=== PATIENT | male | born 1960 | race Caucasian/White ===

== ENCOUNTER 2024-04-29 16:12 | Emergency (ER) | payer MEDICARE, BC, OTHER ==
[2024-04-29] MEDS ORDERED: Sodium Chloride 0.9% 10 ML Syringe FLUSH PRN (16:18)
[2024-04-29] MEDS: Aspirin 81 MG Tab.Chew PO ONE (16:30)
[2024-04-29 16:31] LABS: BASOPHILS PERCENT AUTO 0.4 % (0.0-1.0); EOSINOPHILS PERCENT AUTO 1.1 % (1.0-3.0); HEMATOCRIT 48.7 % (40.0-54.0); HEMOGLOBIN 16.7 g/dL (14.0-18.0); LYMPHOCYTES PERCENT AUTO 21.5 % (20.5-50.1); MEAN CORPUSCULAR HEMOGLOBIN 31.8 pg (27.0-34.0); MEAN CORPUSCULAR HGB CONC 34.3 g/dL (33.0-35.0); MEAN CORPUSCULAR VOLUME 92.8 fL (80-100); MONOCYTES PERCENT AUTO 7.5 % (2-8); NEUTROPHILS PERCENT AUTO 69.5 % (42.2-75.2); PLATELET COUNT,PLT 270 10^3/uL (150-450); RED BLOOD CELL COUNT 5.25 10^6/uL (4.6-6.2); WHITE BLOOD CELL COUNT,WBC 11.4 10^3/uL (5.0-10.0)
[2024-04-29 16:51] LABS: INR 0.9 (0.9-1.2); PROTHROMBIN TIME 9.7 SEC (9.0-12.0); PTT,PARTIAL THROMBOPLSTIN TIME 24.3 SEC (22.0-34.0)
[2024-04-29 16:53] LABS: B-TYPE NATRIURETIC PEPTIDE,BNP 10 pg/ml (0-100)
[2024-04-29 16:54] LABS: LACTIC ACID 1.5 mmol/L (0.4-2.0)
[2024-04-29 17:00] LABS: ALANINE AMINOTRANSFERASE,ALT 72 U/L (16-63); ALBUMIN 3.9 g/dL (3.4-5.0); ALKALINE PHOSPHATASE 71 U/L (46-116); ANION GAP 14.2 mEq/L (7-13); ASPARTATE AMNIOTRANSFERASE,AST 33 U/L (15-37); BILIRUBIN TOTAL 0.3 mg/dL (0.2-1.0); BLOOD UREA NITROGEN,BUN 22 mg/dL (7-18); BUN/CREATININE RATIO 18.6 (No establ ref range); C-REACTIVE PROTEIN < 0.50 ng/dL (<=0.50); CALCIUM 9.6 mg/dL (8.5-10.1); CARBON DIOXIDE,CO2 27 mmol/L (21-32); CHLORIDE,CL 106 mmol/L (98-107); CREATININE 1.18 mg/dL (0.70-1.30); EST CRCL DRUG DOSING (CG) 62.41 mL/min; ESTIMATED GFR 68 mL/min (>=60); ETHANOL BLOOD MEDICAL < 3 mg/dL (0); GLUCOSE RANDOM 150 mg/dL (70-99); MAGNESIUM 2.1 mg/dL (1.8-2.4); POTASSIUM,K 4.2 mmol/L (3.5-5.1); PROTEIN TOTAL,TP 7.7 g/dL (6.4-8.2); SODIUM,NA 143 mmol/L (136-145); TSH ULTRASENSITIVE 1.95 uIU/mL (0.36-3.74)
[2024-04-29] MEDS: Labetalol 20 MG/4 ML Syringe IVPUSH ONE (17:00)
[2024-04-29] MEDS: Iopamidol 755 Mg/ML 100 ML Bottle IVPUSH ONE (17:02)
== END 2024-04-29 19:20 | disposition home or self-care (01) ==
LOC: DL.ED 16:12
DX: I16.0 Hypertensive urgency (principal); R07.89 Other chest pain; F17.210 Nicotine dependence, cigarettes, uncomplicated
CPT/HCPCS: 36415; 71045; 71275; 74174; 80053; 80307; 83605; 83615; 83735; 83880; 84443; 84484; 85025; 85610; 85730; 86140; 93005; 96374; 99285; A9270; J1920; Q9967